=== PATIENT | male | born 1965 | race Caucasian/White ===

== ENCOUNTER 2019-07-15 18:05 | Emergency (ER) | payer OTHER ==
[2019-07-15] MEDS ORDERED: Albuterol/Ipratropium 3.0-0.5 MG/3 ML Neb Soln NEB ONE (18:30)
--- NOTE | 2019-07-15 18:36 | EDM.PDOC ---
ED HPI GENERAL MEDICAL PROBLEM - General Chief Complaint: Respiratory Problem Stated Complaint: RESPIRATORY ISSUES/LOW O2/SENT FROM [facility] Time Seen by Provider: 07/15/19 18:13 Source of Information: Reports: Patient History Limitations: Reports: No Limitations - History of Present Illness INITIAL COMMENTS - FREE TEXT/NARRATIVE: Patient is a 54-year-old male who presents with complaints of cough, congestion , low-grade fever, and shortness of breath for the last 10 days. Patient went to the [place] walk[facility]in [facility] and was sent over here for low oxygen saturations. Patient states at [facility] [facility] his oxygen saturation was 91% after exertion. He does improve to 95 to 97% when he is resting. Patient checked his temperature at home yesterday it was 99.8. He is coughing up some thick mucus. Patient states that his household members and some of his coworkers have been sick with similar symptoms, however his symptoms seem to be worsening. He does have a history of pneumonia in the past. He is up-to-date on his vaccinations including pneumonia and influenza vaccination. He is not a smoker and he denies any chronic lung conditions. - Related Data Allergies Allergy/AdvReac Type Severity Reaction Status Date / Time No Known Allergies Allergy Verified 07/15/19 18:14 Home Meds: Home Meds Alpha Lipoic Acid 600 mg PO DAILY 07/15/19 [History] Aspirin/Caffeine [Anacin 400-32 mg Tablet] 1 tab PO DAILY 07/15/19 [History] Azithromycin 250 mg PO DAILY #6 tablet 07/15/19 [Rx] Azithromycin [Zithromax] 250 mg PO ASDIRECTED #6 tab 07/15/19 [Rx] Lisinopril [Zestril] 5 mg PO DAILY 07/15/19 [History] Multivitamin [Daily Multiple Vitamin] 1 tab PO DAILY 07/15/19 [History] Thiamine HCl 1,200 mg PO DAILY 07/15/19 [History] metFORMIN HCl [Metformin ER Gastric] 500 mg PO TID 07/15/19 [History] Past Medical History Cardiovascular History: Reports: Hypertension Respiratory History: Reports: Sleep Apnea Endocrine/Metabolic History: Reports: Diabetes, Type II Dermatologic History: Reports: Other (See Below) Other Dermatologic History: rash to L hand - Past Surgical History Dermatological Surgical History: Reports: Skin Biopsy Social & Family History - Family History Family Medical History: Noncontributory - Tobacco Use Smoking Status *Q: Never Smoker Second Hand Smoke Exposure: No - Caffeine Use Caffeine Use: Reports: Soda - Recreational Drug Use Recreational Drug Use: No ED ROS GENERAL - Review of Systems Review Of Systems: Comprehensive ROS is negative, except as noted in HPI. ED EXAM, GENERAL - Physical Exam Exam: See Below Exam Limited By: No Limitations General Appearance: Alert, WD/WN, No Apparent Distress Throat/Mouth: Normal Inspection, Normal Lips, Normal Teeth, Normal Gums, Normal Oropharynx, Normal Voice, No Airway Compromise Respiratory/Chest: No Respiratory Distress, No Accessory Muscle Use, Chest Non- Tender, Rhonchi (Mild throughout), Wheezing (Mild throughout) Cardiovascular: Normal Peripheral Pulses, Regular Rate, Rhythm, No Edema, No Gallop, No JVD, No Murmur, No Rub GI/Abdominal: Normal Bowel Sounds, Soft, Non-Tender, No Organomegaly, No Distention, No Abnormal Bruit, No Mass Neurological: Alert, Oriented, CN II-XII Intact, Normal Cognition, Normal Gait, Normal Reflexes, No Motor/Sensory Deficits Psychiatric: Normal Affect, Normal Mood Skin Exam: Warm, Dry, Intact, Normal Color, No Rash Course - Vital Signs Last Recorded V/S: Last Vital Signs Temp 98.5 F 07/15/19 18:12 Pulse 96 07/15/19 18:12 Resp 19 07/15/19 18:12 BP 162/101 H 07/15/19 18:12 Pulse Ox 92 L 07/15/19 18:44 - Orders/Labs/Meds Orders: Active Orders 24 hr Category Date Time Status RT Aerosol Therapy [RC] ASDIRECTED Care 07/15/19 18:30 Active Labs: Laboratory Tests 07/15/19 07/15/19 07/15/19 Range/Units 18:54 18:54 18:54 WBC 11.57 H (4.23-9.07) K/mm3 RBC 5.49 (4.63-6.08) M/mm3 Hgb 16.0 (13.7-17.5) gm/dl Hct 49.6 (40.1-51.0) % MCV 90.3 (79.0-92.2) fl MCH 29.1 (25.7-32.2) pg MCHC 32.3 (32.2-35.5) g/dl RDW Std Deviation 47.1 H (35.1-43.9) fL Plt Count 340 H (163-337) K/mm3 MPV 9.1 L (9.4-12.3) fl Neut % (Auto) 68.2 H (34.0-67.9) % Lymph % (Auto) 19.4 L (21.8-53.1) % [place] % (Auto) 7.1 (5.3-12.2) % Eos % (Auto) 4.5 (0.8-7.0) Baso % (Auto) 0.3 (0.1-1.2) % Neut # (Auto) 7.90 H (1.78-5.38) K/mm3 Lymph # (Auto) 2.24 (1.32-3.57) K/mm3 [place] # (Auto) 0.82 (0.30-0.82) K/mm3 Eos # (Auto) 0.52 (0.04-0.54) K/mm3 Baso # (Auto) 0.03 (0.01-0.08) K/mm3 Manual Slide Review Normal smear Sodium 137 (136-145) mEq/L Potassium 4.1 (3.5-5.1) mEq/L Chloride 100 (98-107) mEq/L Carbon Dioxide 25 (21-32) mEq/L Anion Gap 16.1 H (5-15) BUN 19 H (7-18) mg/dL Creatinine 1.2 (0.7-1.3) mg/dL Est Cr Clr Drug Dosing 69.67 mL/min Estimated GFR (MDRD) > 60 (>60) mL/min BUN/Creatinine Ratio 15.8 (14-18) Glucose 113 H (74-106) mg/dL Calcium 9.5 (8.5-10.1) mg/dL Total Bilirubin 0.2 (0.2-1.0) mg/dL AST 26 (15-37) U/L ALT 51 (16-63) U/L Alkaline Phosphatase 91 (46-116) U/L NT-Pro-B Natriuret Pep 32 (0-125) pg/mL Total Protein 8.5 H (6.4-8.2) g/dl Albumin 3.8 (3.4-5.0) g/dl Globulin 4.7 gm/dL Albumin/Globulin Ratio 0.8 L (1-2) Meds: Medications Discontinued Medications Generic Name Dose Route Start Last Admin Trade Name Peyton PRN Reason Stop Dose Admin Albuterol/Ipratropium 3 ml 07/15/19 18:30 07/15/19 18:43 Duoneb 3.0-0.5 Mg/3 Ml NEB 07/15/19 18:31 3 ml ONETIME ONE Administration - Re-Assessments/Exams Free Text/Narrative Re-Assessment/Exam: 07/15/19 20:01 Hematology was significant for a mildly elevated WBC at 11.57. Neutrophils 68.2 %, absolute neutrophils 7.9, anion gap 16.1. Chest x-ray is concerning for a left lower lobe pneumonia. Patient received a DuoNeb treatment which she states did help loosen up some of his secretions. Oxygen saturation while in the ER has been from 92 to 96%. Oxygen saturations are higher when the patient is sitting upright as opposed to lying down. We will started him on azithromycin for a left lower lobe community-acquired pneumonia. He does still have an albuterol inhaler at home. Discharge instructions as noted. Departure - Departure Time of Disposition: 20:01 Disposition: Home, Self-Care 01 Condition: Fair Clinical Impression: Pneumonia Qualifiers: Pneumonia type: due to unspecified organism Laterality: left Lung location: lower lobe of lung Qualified Code(s): J18.9 - Pneumonia, unspecified organism - Discharge Information Prescriptions: Azithromycin 250 mg PO DAILY #6 tablet Azithromycin [Zithromax] 250 mg PO ASDIRECTED #6 tab Instructions: Community-Acquired Pneumonia, Adult, [id number] Referrals: Chely Rivera PA-C [Primary Care Provider] - Forms: ED Department Discharge Additional Instructions: You were seen in the emergency department today for low-grade fever, cough, congestion, and shortness of breath that has been progressively worsening for the last 10 days. Your work-up included blood work, as well as a chest x-ray. Your WBCs were mildly elevated and your chest x-ray is concerning for a mild left lower lobe pneumonia. A prescription for azithromycin has been sent to [facility]. Take this medication as prescribed. I also recommend that you start taking Mucinex [id number] to loosen your secretions. You may continue to use your albuterol inhaler 2 puffs every 4 hours as needed for shortness of breath. You should begin to see improvement in your symptoms over the next couple days. If you should experience any new or worsening symptoms, or fail to improve as expected, please not hesitate to return to the emergency department or follow-up with your primary care provider in the clinic. Sepsis Event Note - Evaluation Sepsis Screening Result: No Definite Risk - Focused Exam Date Exam was Performed: 07/16/19 Time Exam was Performed: 11:14 - My Orders Last 24 Hours: My Active Orders 07/15/19 18:30 RT Aerosol Therapy [RC] ASDIRECTED - Assessment/Plan Last 24 Hours: My Active Orders 07/15/19 18:30 RT Aerosol Therapy [RC] ASDIRECTED
--- NOTE | 2019-07-16 07:43 | CR ---
Chest: Two views of the chest were obtained. Comparison: No prior chest imaging. Slight atelectasis or scarring above the left hemidiaphragm is noted. Lungs otherwise are clear. Heart size and mediastinum are normal. Bony structures show several compression deformities within the spine which are felt to be old. Scattered disc space narrowing is noted within the spine with scattered endplate spurring. Impression: 1. Findings as noted above. 2. Nothing acute is appreciated on two-view chest x-ray. Diagnostic code #2 This report was dictated in [place] Standard Time
== END 2019-07-15 20:15 | disposition home or self-care (01) ==
LOC: JD.ED 18:05
DX: J18.9 Pneumonia, unspecified organism (principal); I10 Essential (primary) hypertension; E11.9 Type 2 diabetes mellitus without complications; Z79.82 Long term (current) use of aspirin; Z79.899 Other long term (current) drug therapy; Z79.84 Long term (current) use of oral hypoglycemic drugs
CPT/HCPCS: 36415; 71046; 71046-26; 80053; 83880; 85025; 87804; 94640; 99283; 99285-25; J7620-GY

== ENCOUNTER 2019-07-20 16:25 | Emergency (ER) | payer OTHER ==
--- NOTE | 2019-07-20 19:14 | CR ---
Chest: 2 views of the chest were obtained. Comparison: Prior chest x-ray of 07/15/19. Heart size and mediastinum are normal. Lungs are clear with no acute parenchymal change. Scattered degenerative change with disc space narrowing and endplate spurring is noted within the spine. Diaphragms are slightly flattened on the lateral view suggesting emphysematous change. Impression: 1. Possible emphysematous change. 2. Other findings as noted above. 3. Nothing acute is appreciated on 2 view chest x-ray. Diagnostic code #2 Study was dictated in [place] Standard Time
[2019-07-20] MEDS ORDERED: Albuterol/Ipratropium 3.0-0.5 MG/3 ML Neb Soln NEB ONE ×2 (19:31→19:58)
[2019-07-20] MEDS ORDERED: predniSONE 20 MG Tab PO ONE (19:32)
--- NOTE | 2019-07-20 19:35 | EDM.PDOC ---
ED HPI GENERAL MEDICAL PROBLEM - General Chief Complaint: Respiratory Problem Stated Complaint: PNEUMONIA IS GETTING WORSE Time Seen by Provider: 07/20/19 17:30 Source of Information: Reports: Patient, RN Notes Reviewed - History of Present Illness INITIAL COMMENTS - FREE TEXT/NARRATIVE: 54-year-old male has been ill for about 10-12 days with cough congestion trouble breathing. He was evaluated here in the ED 5 days ago, diagnosed with possible pneumonia started on a Z-Moisés which he has been taking and also he has been using an albuterol hand-held inhaler he continues to cough and has felt more short of breath the past 2 days "than ever before". He has had some low- grade fever and chills yesterday and today. Did a flu shot last fall. Cough is mostly dry and nonproductive. He does have nasal and sinus congestion with some postnasal drainage. Chest Pain Score (Numeric/FACES): 4 - Related Data Allergies Allergy/AdvReac Type Severity Reaction Status Date / Time No Known Allergies Allergy Verified 07/15/19 18:14 Home Meds: Home Meds Alpha Lipoic Acid 600 mg PO DAILY 07/15/19 [History] Aspirin/Caffeine [Anacin 400-32 mg Tablet] 1 tab PO DAILY 07/15/19 [History] Azithromycin [Zithromax] 250 mg PO ASDIRECTED #6 tab 07/15/19 [Rx] Lisinopril [Zestril] 5 mg PO DAILY 07/15/19 [History] Multivitamin [Daily Multiple Vitamin] 1 tab PO DAILY 07/15/19 [History] Thiamine HCl 1,200 mg PO DAILY 07/15/19 [History] metFORMIN HCl [Metformin ER Gastric] 500 mg PO TID 07/15/19 [History] predniSONE [Prednisone] 50 mg PO DAILY #5 tablet 07/20/19 [Rx] Past Medical History Cardiovascular History: Reports: Hypertension Respiratory History: Reports: Pneumonia, Recurrent, Sleep Apnea Endocrine/Metabolic History: Reports: Diabetes, Type II Dermatologic History: Reports: Other (See Below) Other Dermatologic History: rash to L hand - Past Surgical History Dermatological Surgical History: Reports: Skin Biopsy Social & Family History - Family History Family Medical History: Noncontributory - Tobacco Use Smoking Status *Q: Never Smoker - Caffeine Use Caffeine Use: Reports: Soda - Recreational Drug Use Recreational Drug Use: No ED ROS GENERAL - Review of Systems Review Of Systems: See Below Constitutional: Reports: Fever, Chills HEENT: Reports: Rhinitis. Denies: Throat Pain Respiratory: Reports: Shortness of Breath, Wheezing, Cough, Sputum Cardiovascular: Reports: Chest Pain (with coughing) GI/Abdominal: Denies: Abdominal Pain, Nausea, Vomiting Musculoskeletal: Reports: No Symptoms Skin: Reports: No Symptoms Neurological: Reports: No Symptoms ED EXAM, GENERAL - Physical Exam Exam: See Below General Appearance: Alert, No Apparent Distress Eye Exam: Bilateral Eye: PERRL Ears: Normal External Exam, Normal Canal Nose: Normal Inspection Throat/Mouth: Normal Inspection, Normal Oropharynx Respiratory/Chest: Wheezing (mild). No: Rhonchi GI/Abdominal: Soft, Non-Tender Back Exam: Normal Inspection Extremities: Normal Inspection, Normal Range of Motion Neurological: Alert, Oriented, No Motor/Sensory Deficits Skin Exam: Warm, Dry, Normal Color Course - Vital Signs Last Recorded V/S: Last Vital Signs Temp 99.4 F 07/20/19 16:47 Pulse 118 H 07/20/19 16:47 Resp 20 07/20/19 16:47 BP 136/95 H 07/20/19 16:47 Pulse Ox 92 L 07/20/19 19:40 - Orders/Labs/Meds Meds: Medications Discontinued Medications Generic Name Dose Route Start Last Admin Trade Name Peyton PRN Reason Stop Dose Admin Albuterol 2.5 mg 07/20/19 20:01 07/20/19 20:33 Proventil Neb Soln [facility] 07/20/19 20:02 2.5 mg ONETIME ONE Administration Albuterol/Ipratropium 3 ml 07/20/19 19:31 07/20/19 19:38 Duoneb 3.0-0.5 Mg/3 Ml [facility] 07/20/19 19:32 3 ml ONETIME ONE Administration Albuterol/Ipratropium 3 ml 07/20/19 19:58 07/20/19 20:33 Duoneb 3.0-0.5 Mg/3 Ml [facility] 07/20/19 19:59 3 ml ONETIME ONE Administration Prednisone 60 mg 07/20/19 19:32 07/20/19 19:52 Prednisone PO 07/20/19 19:33 60 mg ONETIME ONE Administration - Re-Assessments/Exams Free Text/Narrative Re-Assessment/Exam: 07/20/19 19:56 Chest x-ray today is normal, no infiltrate, no fluid or visible pulmonary congestion. BNP 32 5 days ago, other labs relatively OK. Have not repeated other labs this evening. Discharge instr. as documented. Departure - Departure Time of Disposition: 20:11 Disposition: Home, Self-Care 01 Condition: Fair Clinical Impression: Bronchitis, Dyspnea, Wheezing, Hypoxia - Discharge Information Prescriptions: predniSONE [Prednisone] 50 mg PO DAILY #5 tablet Instructions: Shortness of Breath, Adult, [id number], Acute Bronchitis, Adult Referrals: Chely Rivera PA-C [Primary Care Provider] - Forms: ED Department Discharge Additional Instructions: Prednisone 50 mg every morning for the next 4 days, The zithromax you have previously taken will continue working for you for the next 4-5 days as well. Albuterol neb in 4-6 hours if needed and then duo neb 8-10 hours as needed. Continue albuterol nebs every 4-6 hours as needed for wheezing, difficulty breathing until symptoms resolving. Follow-up clinic in 3-4 days for recheck. Call for appointment in a.m. Discuss need for pulmonology referral to further evaluate difficulty breathing and difficulty oxygenating. Return to ED as needed. Sepsis Event Note - Evaluation Sepsis Screening Result: No Definite Risk - Focused Exam Date Exam was Performed: 07/27/19 Time Exam was Performed: 19:45
[2019-07-20] MEDS ORDERED: Albuterol 0.083% 2.5 MG/3 ML Neb Soln NEB ONE (20:01)
== END 2019-07-20 20:34 | disposition home or self-care (01) ==
LOC: JD.ED 16:25
DX: J40 Bronchitis, not specified as acute or chronic (principal); I10 Essential (primary) hypertension; E11.65 Type 2 diabetes mellitus with hyperglycemia; Z79.82 Long term (current) use of aspirin; Z79.84 Long term (current) use of oral hypoglycemic drugs
CPT/HCPCS: 71046; 99283; A9270; J7620-GY